=== PATIENT | female | born 1955 | race Asian ===

== ENCOUNTER 2025-05-24 07:59 | Outpatient (RCR) | payer MEDICARE, SELFPAY | END 2025-07-03 11:36 | disposition home or self-care (01) | LOC: HO.PT 07:59 | PROVIDERS: PCP Internal Medicine; Visit Provider Obstetrics & Gynecology | DX: N39.3 Stress incontinence (female) (male) (principal); N94.10 Unspecified dyspareunia | CPT/HCPCS: 97110; 97112; 97140; 97161 ==